=== PATIENT | male | born 1960 | race Caucasian/White ===

== ENCOUNTER 2019-02-07 09:38 | Emergency (ER) | payer OTHER ==
[2019-02-07 09:58] VITALS: BMI 39.1
[2019-02-07] MEDS ORDERED: KETOROLAC TROMETHAMINE 30 MG/1 ML VIAL IVPUSH ONE (10:15)
[2019-02-07] MEDS ORDERED: KETOROLAC TROMETHAMINE 30 MG/1 ML VIAL ONE (10:37)
[2019-02-07 10:49] LABS: BASO % 0.9 % (0-2.0); HEMATOCRIT 43.7 % (35.4-49); HEMOGLOBIN 14.5 GM/dL (11.7-16.9); LYMPH % 15.1 % (8-40); MCH 29.8 pg (25.7-33.7); MCHC 33.1 g/dl (32.0-35.9); MEAN CELL VOLUME 89.8 fl (80-96); MEAN PLT VOLUME 8.5 fl (7.5-11.1); MONO % 5.8 % (3.8-10.2); NEUT % 78.2 % (42.8-82.8); PLATELET COUNT 295 K/MM3 (134-434); RBC 4.86 M/mm3 (4.00-5.60); RDW 12.9 % (11.9-15.9); URINE APPEARANCE CLEAR; URINE BILIRUBIN NEGATIVE (NEGATIVE); URINE COLOR YELLOW; URINE GLUCOSE (UA) NEGATIVE (NEGATIVE); URINE KETONE NEGATIVE (NEGATIVE); URINE LEUK ESTERASE NEGATIVE (NEGATIVE); URINE NITRITE NEGATIVE (NEGATIVE); URINE PROTEIN TRACE (NEGATIVE); WHITE BLOOD COUNT 13.6 K/mm3 (4.0-10.0)
--- NOTE | 2019-02-07 10:50 | PDOC ---
History of Present Illness - General Chief Complaint: Pain Stated Complaint: ABD PAIN Time Seen by Provider: 02/07/19 09:59 History Source: Patient Exam Limitations: No Limitations - History of Present Illness Travel History: No Initial Comments: 02/07/19 11:38 58-year-old male presents the ED with 4 months of right upper quadrant pain worsening severity over the past week. Patient denies nausea vomiting, bowel complaints, urinary complaints, or fever/chills. Patient states no history of gallstones kidney stones or GI disorders Timing/Duration: reports: getting worse, intermittent Quality: reports: moderate, sharpness Abdominal Pain Onset Location: reports: RUQ Pain Radiation: reports: no radiation Aggravating Factors: improves with: None Alleviating Factors: improves with: None Past History - Travel Traveled outside of the country in the last 30 days: No Close contact w/someone who was outside of country & ill: No - Past Medical History Allergies/Adverse Reactions: Allergies Allergy/AdvReac Type Severity Reaction Status Date / Time shellfish derived Allergy Unknown Verified 02/07/19 12:00 Home Medications: Ambulatory Orders Amlodipine Besylate 10 mg PO DAILY 02/07/19 Atorvastatin Ca [Lipitor] 10 mg PO HS 02/07/19 COPD: No HTN: Yes Hypercholesterolemia: Yes - Surgical History Abdominal Surgery: Yes (hernia) - Immunization History Immunization Up to Date: No - Psycho Social/Smoking Cessation Hx Smoking History: Former smoker Have you smoked in the past 12 months: Yes If you are a former smoker, when did you quit?: 10/29 Information on smoking cessation initiated: Yes Hx Alcohol Use: No Drug/Substance Use Hx: No Patient Lives Alone: No Lives with/in: spouse/SO Review of Systems - Review of Systems Able to Perform ROS?: Yes Constitutional: No: Symptoms Reported HEENTM: No: Symptoms Reported Respiratory: No: Symptoms reported Cardiac (ROS): No: Symptoms Reported ABD/GI: Yes: Abdominal cramping. No: Nausea, Vomiting : No: Symptoms Reported Musculoskeletal: No: Symptoms Reported Integumentary: No: Symptoms Reported Neurological: No: Symptoms reported Endocrine: No: Symptoms Reported Hematologic/Lymphatic: No: Symptoms Reported *Physical Exam - Vital Signs Last Vital Signs Temp Pulse Resp BP Pulse Ox 98.6 F 84 16 149/89 98 02/07/19 09:40 02/07/19 09:40 02/07/19 09:40 02/07/19 09:40 02/07/19 09:40 - Physical Exam General Appearance: Yes: Nourished, Appropriately Dressed. No: Apparent Distress HEENT: positive: EOMI. negative: Pale Conjunctivae Neck: positive: Supple Respiratory/Chest: positive: Lungs Clear. negative: Respiratory Distress, Accessory Muscle Use Cardiovascular: positive: Regular Rhythm, Regular Rate. negative: Murmur Gastrointestinal/Abdominal: positive: Soft, Tenderness (ruq tendeness, + murphys sign) Extremity: positive: Normal Capillary Refill, Pedal Edema Integumentary: positive: Normal Color, Warm, Moist Neurologic: positive: Motor Strength 5/5 (ambulatory) ED Treatment Course - LABORATORY CBC & Chemistry Diagram: 02/07/19 10:20 02/07/19 10:20 - RADIOLOGY Radiology Studies Ordered: Category Date Time Status GALLBLADDER US [US] Stat Ultrasound 02/07/19 10:15 Ordered Medical Decision Making - Medical Decision Making 02/07/19 11:39 Chief complaint: Right upper quadrant pain for the past month worsening severity patient has no GI history. Exam patient with right upper quadrant tenderness positive Garrido sign negative CVA tenderness Plan: Labs, urine, Toradol, IV fluids and gallbladder ultrasound ordered 02/07/19 12:40 Laboratory Tests 02/07/19 02/07/19 02/07/19 10:20 10:20 10:20 WBC 13.6 H Hgb 14.5 Hct 43.7 Absolute Neuts (auto) 10.6 H Neutrophils % 78.2 Sodium 135 L Potassium 5.0 Chloride 101 Anion Gap 8 BUN 24.7 H Creatinine 1.1 Random Glucose 136 H Calcium 9.2 Total Bilirubin 0.5 AST 28 ALT 29 Alkaline Phosphatase 76 Lipase 181 Ur Specific [place] Urine Ketones Urine Nitrite Urine Bilirubin 02/07/19 10:20 WBC Hgb Hct Absolute Neuts (auto) Neutrophils % Sodium Potassium Chloride Anion Gap BUN Creatinine Random Glucose Calcium Total Bilirubin AST ALT Alkaline Phosphatase Lipase Ur Specific [place] 1.040 H Urine Ketones Negative Urine Nitrite Negative Urine Bilirubin Negative Gallbladder ultrasound shows no gallstones or other acute pathology. Patient continues with discomfort will order CAT scan 02/07/19 13:49 CT shows an essentially normal CT of the abdomen and pelvis with no evidence of acute pathology. Will be given a GI consult. 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 They take Motrin 400mg-600mg for discomfort. If your symptoms worsen including nausea vomiting fever, severe abdominal pain or bloody stool please return to the ED immediately - Post Discharge Activity
[2019-02-07 11:19] LABS: MAGNESIUM 2.9 mg/dL (1.8-2.4)
[2019-02-07 11:23] LABS: ALBUMIN 4.4 g/dl (3.4-5.0); BILIRUBIN,TOTAL 0.5 mg/dL (0.2-1); BLOOD UREA NITROGEN 24.7 mg/dL (7-18); CALCIUM 9.2 mg/dL (8.5-10.1); CREATININE 1.1 mg/dL (0.55-1.3); TOT PROT 7.8 g/dl (6.4-8.2)
[2019-02-07 13:56] VITALS: BP 136/96; PULSE 64; TEMP 98.5
== END 2019-02-07 14:09 | disposition home or self-care (01) ==
LOC: JER 09:38
PROC: 3E0333Z Introduction of Anti-inflammatory into Peripheral Vein, Percutaneous Approach (ICD-10-PCS; principal; 2019-02-07)
DX: R10.9 Unspecified abdominal pain (principal); I10 Essential (primary) hypertension; E78.00 Pure hypercholesterolemia, unspecified; Z91.013 Allergy to seafood; Z87.891 Personal history of nicotine dependence
CPT/HCPCS: 36415; 74176-TC; 76705-TC; 80053; 81003; 83690; 83735; 85025; 87086; 96374; 99283-25

== ENCOUNTER 2021-01-24 13:32 | Emergency (ER) | payer OTHER ==
[2021-01-24 13:43] VITALS: BP 111/66; PULSE 85; TEMP 97.9; BMI 42.9
[2021-01-24] MEDS ORDERED: SODIUM CHLORIDE 0.9% 1000 ML INFUS.BAG IV ONE (15:05)
[2021-01-24 17:15] LABS: EOS % 0.2 % (0-4.5); HEMATOCRIT 34.4 % (35.4-49); HEMOGLOBIN 11.8 GM/dL (11.7-16.9); LYMPH % 21.3 % (8-40); MCHC 34.4 g/dl (32.0-35.9); MEAN CELL VOLUME 87.2 fl (80-96); MONO % 5.5 % (3.8-10.2); PLATELET COUNT 251 10^3/uL (134-434); RBC 3.94 M/mm3 (4.00-5.60); RDW 13.8 % (11.9-15.9); WHITE BLOOD COUNT 6.9 K/mm3 (4.0-10.0)
[2021-01-24 17:39] LABS: CALCIUM 9.3 mg/dL (8.5-10.1); CO2 27 mmol/L (21-32)
[2021-01-24 17:40] LABS: BLOOD UREA NITROGEN 16.8 mg/dL (7-18)
[2021-01-24 17:43] LABS: GLUCOSE,RANDOM 137 mg/dL (74-106); SGOT/AST 20 U/L (15-37); SGPT/ALT 21 U/L (13-61)
[2021-01-24 17:44] LABS: BILIRUBIN,TOTAL 0.3 mg/dL (0.2-1); TOT PROT 7.5 g/dl (6.4-8.2)
[2021-01-24 17:45] LABS: ALK PHOS 63 U/L (45-117)
[2021-01-24 18:06] LABS: ANION GAP 9 MMOL/L (8-16); CHLORIDE 98 mmol/L (98-107); SODIUM 134 mmol/L (136-145)
== END 2021-01-24 18:59 ==
LOC: JER 13:32
DX: R07.9 Chest pain, unspecified (principal); R53.1 Weakness; R68.83 Chills (without fever)
CPT/HCPCS: 36415; 71045-TC-FY; 80053; 82550; 82962; 84484; 85025; 93005; 93010; 99284-25